=== PATIENT | male | born 1995 | race Caucasian/White ===

== ENCOUNTER 2017-09-14 23:38 | Emergency (ER) | payer SELFPAY ==
[2017-09-14] MEDS ORDERED: Haloperidol INJ IV/IM* 5 MG/ML AMP IM ONE (23:44)
[2017-09-14] MEDS ORDERED: LORazepam INJ* 2 MG/ML 1 ML VIAL IM ONE (23:44)
--- NOTE | 2017-09-15 00:38 | ED ---
Psychiatric Complaint - HPI Summary HPI Summary: This is scribe Terrell Emery documenting for attending Dr. Giuseppe Paiz MD. A 22 y/o male BIBP presents to ED s/p drug intake. As per triage, "PD was called to [facility] to come detain pt. pt is hallucanting and yelling out. pt is uncotertive and unapproperate". Police stated that patient was at a music festival and most likely LSD and marijuana. Pt became agitated and psychotic. LEVEL 5 CAVEAT - History Of Current Complaint Chief Complaint: EDAltMentalStatus Time Seen by Provider: 09/14/17 23:43 Hx Obtained From: Patient Hx From Patient Unobtainable Due To: Altered Mental Status - Allergies/Home Medications Allergies/Adverse Reactions: Allergies Allergy/AdvReac Type Severity Reaction Status Date / Time No Known Allergies Allergy Verified 09/15/17 01:58 Home Medications: Home Medications NK [No Home Medications Reported] 09/15/17 [History Confirmed 09/15/17] PMH/Surg Hx/FS Hx/Imm Hx Infectious Disease History: Unable to Obtain/Confirm Infectious Disease History: Denies: Traveled Outside the [place] in Last 30 Days Review of Systems Negative: Fever All Other Systems Reviewed And Are Negative: No Physical Exam - Summary Physical Exam Summary: Appearance: Well-appearing, Well-nourished, lying in bed comfortable Skin: Warm, dry, no obvious rash Eyes: sclera anicteric, no conjunctival pallor ENT: mucous membranes moist Neck: deferred Respiratory: No signs of respiratory distress Cardiovascular: Appears well perfused, pulses are nml Abdomen: deferred Musculoskeletal: Moving all 4 extremities without obvious discomfort Neurological: Awake and alert, mentation is normal, speech is fluent and appropriate Psychiatric: affect is normal, does not appear anxious or depressed Triage Information Reviewed: Yes Vital Signs On Initial Exam: Initial Vitals Temp Pulse Resp BP Pulse Ox 98.3 F 93 18 151/56 99 09/15/17 00:00 09/15/17 00:00 09/15/17 00:00 09/15/17 00:00 09/15/17 00:00 Vital Signs Reviewed: Yes Diagnostics - Vital Signs Vital Signs Temp Pulse Resp BP Pulse Ox 09/15/17 00:00 98.3 F 93 18 151/56 99 - Laboratory Lab Statement: Any lab studies that have been ordered have been reviewed, and results considered in the medical decision making process. Course/Dx - Differential Dx/Clinical Impression Provider Diagnosis: Substance abuse, Acute delirium Provider Diagnosis: (Ruled Out): Substance abuse in family Discharge - Sign-Out/Discharge Documenting (check all that apply): Patient Departure - DISCHARGE - Discharge Plan Condition: Improved Disposition: HOME Patient Education Materials: Acute Delirium (ED) Referrals: Non Staff,Doctor [Medical Doctor] - 2 Days Additional Instructions: Street drugs are prone to cause unexpected adverse reactions and are best avoided. RETURN TO ED FOR ANY NEW OR WORSENING SYMPTOMS. - Billing Disposition and Condition Condition: IMPROVED Disposition: Home
[2017-09-15 07:02] VITALS: BP 94/67
== END 2017-09-15 07:00 | disposition home or self-care (01) ==
LOC: ED 23:38
DX: F19.121 Other psychoactive substance abuse with intoxication delirium (principal)
CPT/HCPCS: 96372; 99285; J1630; J2060